=== PATIENT | male | born 1945 | race Caucasian/White ===

== ENCOUNTER 2017-01-21 06:39 | Day surgery (SDC) | payer MEDICARE, OTHER ==
[~2017-01-21 06:39] MED LIST: Dextrose 5%-0.45% NaCl 1,000 ML IV SCH; Midazolam 1 MG/ML 2 ML SDV ONE; Sodium Chloride 0.9% 10 ML Syringe FLUSH PRN; fentaNYL 100 MCG/2 ML SDV ONE
[2017-01-21] MEDS ORDERED: Midazolam 1 MG/ML 2 ML SDV IV ONE ×2 (06:40→07:47)
[2017-01-21] MEDS ORDERED: fentaNYL 100 MCG/2 ML SDV IV ONE ×2 (06:40→07:46)
--- NOTE | 2017-01-21 12:22 | OR ---
DATE: 01/21/2017 PROCEDURE: Esophagogastroduodenoscopy and multiple pinch biopsies. INSTRUMENT USED: GIF-H180 Olympus video panendoscope. PREMEDICATIONS: No oral topical anesthesia used. Fentanyl 50 mcg intravenous, Versed 1 mg intravenous. The procedure was done under pulse oximetry, BP recording, and meter supervisor. INDICATION: The patient with recent CT study suggestive of abnormal esophagus, malignancy under consideration, on long-term low-dose aspirin. Esophagogastroduodenoscopy is performed for detection of any active erosive lesions, malignancy also under consideration, endoscopic hemostasis therapy if needed. DESCRIPTION OF PROCEDURE: The scope was passed with ease. Adequate visualization of the esophagus was made from proximal to distal areas. No upper esophageal lesions identified. No distal esophageal stricture. No uphill or downhill esophageal varices. No Gita-Scruggs tear. No evidence of erosive esophagitis by [place] criteria. No esophageal polyp or tumor mass identified. Z-line was seen at around 39 cm distal to the oral verge, configuration consistent with grade 1 by ZAP classification. No proximal gastric varices noted. Gastric fundus examination by retroflexion showed no polypoid lesions. No gastric ulcer, malignant mass, or vascular ectasia identified. Scattered gastric antral erosions were noted without bleeding. The duodenal bulb showed no ulcer. Visualized second part of duodenum was unremarkable. Multiple pinch biopsies were taken from the gastric antrum and proximal body and sent for PyloriTek test for H. pylori, and if negative in an hour, other tissue is to be sent for histopathology. No bleeding was noted from any of the visualized areas at the completion of examination. IMPRESSION: Gastric antral erosions. The patient tolerated the procedure well. [facility] /[id number]
[2017-01-21 13:42] VITALS: BP 127/75
== END 2017-01-21 10:04 | disposition home or self-care (01) ==
LOC: DL.ENDO 06:39
PROVIDERS: ATTEND Internal Medicine Gastroenterology
DX: K29.50 Unspecified chronic gastritis without bleeding (principal); N40.0 Benign prostatic hyperplasia without lower urinary tract symptoms; F32.9 Major depressive disorder, single episode, unspecified; R73.9 Hyperglycemia, unspecified; I10 Essential (primary) hypertension; Z88.8 Allergy status to other drugs, medicaments and biological substances
CPT/HCPCS: 43239; 87077; 88305; 88342; J2250; J3010; J7042

== ENCOUNTER 2017-04-25 10:44 | Emergency (ER) | payer MEDICARE, OTHER ==
[2017-04-25 11:31] VITALS: BP 138/92
--- NOTE | 2017-04-25 12:45 | EDM.PDOC ---
ED HPI GENERAL MEDICAL PROBLEM - General Chief Complaint: Respiratory Problem Stated Complaint: COLD [id number] Time Seen by Provider: 04/25/17 11:30 - History of Present Illness INITIAL COMMENTS - FREE TEXT/NARRATIVE: Asa is a 71 year old man who presents with 3 day history of worsening cough and congestion. He states he had one episode of chills last night. No shortness of breath, is able to move around his home without difficulty. Terence has no past history of obstructive lung disease Chest Pain Score (Numeric/FACES): 3 - Related Data Allergies Allergy/AdvReac Type Severity Reaction Status Date / Time atorvastatin calcium Allergy Joint Pain Verified 01/21/17 06:53 [From Lipitor] calcium Allergy Joint Pain Verified 01/21/17 06:53 rosuvastatin calcium Allergy Pain Verified 01/21/17 06:53 [From Crestor] simvastatin [From Zocor] Allergy Joint Pain Verified 01/21/17 06:53 Home Meds: Home Meds Allopurinol [Zyloprim] 300 mg PO WITHBREAKFAST 07/26/13 [History] Polyethylene Glycol 3350 [MiraLAX] 17 gm PO DAILY PRN 07/26/13 [History] Pravastatin [Pravachol] 40 mg PO DAILY 07/26/13 [History] Aspirin [Ecotrin] 81 mg PO DAILY 05/06/15 [History] Famotidine [Pepcid] 20 mg PO BID PRN 05/06/15 [History] Mv-Mn/FA/Vit K/Lycop/Lut/Zeaxa [Ocuvite Eye + Multi Tablet] 1 each PO DAILY [History] Tamsulosin [Flomax] 0.8 mg PO BEDTIME 05/06/15 [History] Acetaminophen [Acetaminophen ER] 1,300 mg PO Q8H PRN 10/09/15 [History] DULoxetine HCl [Cymbalta] 60 mg PO DAILY 10/09/15 [History] Mirtazapine [Remeron] 15 mg PO BEDTIME 10/09/15 [History] DULoxetine HCl [Cymbalta] 30 mg PO QAM 10/18/15 [History] Acetaminophen/HYDROcodone [[place] 325-5 MG] 1 tab PO Q4H PRN #12 tablet 10/26/15 [Rx] Carboxymethylcellulose Sodium [Refresh Celluvisc] 1 each EYEBOTH ASDIRECTED PRN #1 cont 10/26/15 [Rx] Docusate Sodium/Sennosides [Senna Plus] 1 tab PO BID tablet 10/26/15 [Rx] Diclofenac Sodium [Voltaren] 1 applic TOP ASDIRECTED 01/19/17 [History] Naproxen Sodium [Aleve] 1 tab PO DAILY 01/19/17 [History] guaiFENesin/Codeine Phosphate [Cheratussin AC Syrup] 5 - 10 ml PO Q6H PRN #240 ml 04/25/17 [Rx] predniSONE [Prednisone] 20 mg PO DAILY 6 Days #6 tablet 04/25/17 [Rx] Past Medical History HEENT History: Reports: Hard of Hearing, Impaired Vision, Other (See Below) Other HEENT History: dysphagia, myofascial pain Cardiovascular History: Reports: High Cholesterol, Hypertension Other Cardiovascular History: Pt is allergic to statins Respiratory History: Reports: Pneumothorax, Sleep Apnea Other Respiratory History: DYSPHAGIA, pt states that he had a collapsed lung at a young age Gastrointestinal History: Reports: Chronic Constipation, Other (See Below) Other Gastrointestinal History: constipation Genitourinary History: Reports: BPH, Neurogenic Bladder, Prostate Disorder, Other (See Below) Other Genitourinary History: orchitis, indwelling catheter Musculoskeletal History: Reports: Arthritis, Back Pain, Chronic, Gout, Other ( See Below) Other Musculoskeletal History: carpal tunnel, gout Neurological History: Reports: CVA, Vertigo Other Neuro History: DYSPHAGIA Psychiatric History: Reports: Anxiety, Depression Endocrine/Metabolic History: Reports: None Hematologic History: Reports: Anemia, Idiopathic Thrombocytopenia Immunologic History: Reports: None Oncologic (Cancer) History: Reports: None Dermatologic History: Reports: None - Infectious Disease History Infectious Disease History: Reports: Chicken Pox, Measles - Past Surgical History Head Surgeries/Procedures: Reports: None HEENT Surgical History: Reports: None Cardiovascular Surgical History: Reports: Carotid Endarterectomy, Other (See Below) Other Cardiovascular Surgeries/Procedures: Endarterectomy Respiratory Surgical History: Reports: None GI Surgical History: Reports: None Male Surgical History: Reports: TURP-Transurethral Resection of Prostate Endocrine Surgical History: Reports: None Neurological Surgical History: Reports: None Musculoskeletal Surgical History: Reports: None Dermatological Surgical History: Reports: None Social & Family History - Family History Cardiac: Reports: Cardiomyopathy, Heart Failure Respiratory: Reports: COPD GI: Reports: GERD OBGYN: Reports: None Musculoskeletal: Reports: Arthritis, Fibromyalgia Neurological: Reports: CVA Psychiatric: Reports: None Endocrine/Metabolic: Reports: None Hematologic: Reports: None Oncologic: Reports: None - Tobacco Use Smoking Status *Q: Never Smoker Years of Tobacco use: 15 Packs/Tins Daily: 2 Used Tobacco, but Quit: Yes Month/Year Tobacco Last Used: February Second Hand Smoke Exposure: No - Caffeine Use Caffeine Use: Reports: None Other Caffeine Use: MOST DAYS HE STATES NONE, SOMETIMES 1 - Alcohol Use Days Per Week of Alcohol Use: 2 Number of Drinks Per Day: 1 Total Drinks Per Week: 2 - Recreational Drug Use Recreational Drug Use: No Drug Use in Last 12 Months: No ED ROS GENERAL - Review of Systems Review Of Systems: See Below HEENT: Reports: No Symptoms Respiratory: Reports: Wheezing, Cough Cardiovascular: Reports: No Symptoms Endocrine: Reports: No Symptoms GI/Abdominal: Reports: No Symptoms : Reports: No Symptoms Musculoskeletal: Reports: No Symptoms Skin: Reports: No Symptoms Neurological: Reports: No Symptoms Psychiatric: Reports: No Symptoms Hematologic/Lymphatic: Reports: No Symptoms Immunologic: Reports: No Symptoms ED EXAM, GENERAL - Physical Exam Exam: See Below Free Text/Narrative:: General: Asa is a pleasant 71 year old man in no acute distress. He is showing no signs of respiratory distress Ears: canals are patent, TMs appear normal Oropharynx: clear, no exudates or petechiae noted Lungs: mild expiratory wheezing bilaterally PA and lateral chest xray shows some mild hilar prominence, no areas of infiltrate seen Course - Vital Signs Last Recorded V/S: Last Vital Signs Temp 98.9 C H 04/25/17 11:30 Pulse 103 H 04/25/17 11:30 Resp 16 04/25/17 11:30 BP 138/92 H 04/25/17 11:30 Pulse Ox 98 04/25/17 11:30 Departure - Departure Time of Disposition: 13:00 Disposition: Home, Self-Care 01 Condition: Good Clinical Impression: Acute bronchitis Qualifiers: Bronchitis organism: unspecified organism Qualified Code(s): J20.9 - Acute bronchitis, unspecified - Discharge Information Prescriptions: guaiFENesin/Codeine Phosphate [Cheratussin AC Syrup] 5 - 10 ml PO Q6H PRN #240 ml PRN Reason: Cough predniSONE [Prednisone] 20 mg PO DAILY 6 Days #6 tablet Instructions: Acute Bronchitis, Adult, [id number] Forms: ED Department Discharge Additional Instructions: Followup with your primary care physician in 3-4 days if you are not feeling better - Problem List & Annotations (1) Acute bronchitis SNOMED Code(s): 78491865 Code(s): J20.9 - ACUTE BRONCHITIS, UNSPECIFIED Status: Acute Onset Date: ~04/21/17 Qualifiers: Bronchitis organism: unspecified organism Qualified Code(s): J20.9 - Acute bronchitis, unspecified - Problem List Review Problem List Initiated/Reviewed/Updated: Yes
== END 2017-04-25 12:42 | disposition home or self-care (01) ==
LOC: DL.ED 10:44
DX: J20.9 Acute bronchitis, unspecified (principal); Z87.891 Personal history of nicotine dependence; I10 Essential (primary) hypertension; E78.00 Pure hypercholesterolemia, unspecified; F41.9 Anxiety disorder, unspecified; F32.9 Major depressive disorder, single episode, unspecified; Z79.899 Other long term (current) drug therapy; Z79.82 Long term (current) use of aspirin; Z79.52 Long term (current) use of systemic steroids; Z88.8 Allergy status to other drugs, medicaments and biological substances; Z91.09 Other allergy status, other than to drugs and biological substances
CPT/HCPCS: 71046; 99283

== ENCOUNTER 2017-08-02 11:28 | Emergency (ER) | payer MEDICARE, OTHER ==
[2017-08-02 11:52] VITALS: BP 114/68
[2017-08-02 13:32] LABS: CHLORIDE,CL 98 mmol/L (101-111); SODIUM,NA 137 mmol/L (135-145)
[2017-08-02] MEDS ORDERED: Ondansetron 4 MG Tab.DIS PO ONE (13:54)
--- NOTE | 2017-08-02 15:57 | EDM.PDOC ---
Scribed by Samia Fernandez 08/02/17 1979 for Josefa Stroud NP ED HPI GENERAL MEDICAL PROBLEM - General Chief Complaint: Genitourinary Problem Stated Complaint: uti Time Seen by Provider: 08/02/17 12:36 Source of Information: Reports: Patient, RN, RN Notes Reviewed History Limitations: Reports: No Limitations - History of Present Illness INITIAL COMMENTS - FREE TEXT/NARRATIVE: Patient presented to ER with complaint of burning with urination beginning last night. Patient feels as if he can't empty all the way. Patient states he had a fall on Thursday--is doctoring-- with neurology and is scheduled for MRI this week. Patient states fractured left arm and has numbness and tingling down left leg. Patient continues to have dizzy spells and unsteady/unbalanced. She has had positive night sweats, nausea, shortness of breath (normal for him) and chronic pain. No fever, chills, vomiting, diarrhea or chest pain. Onset Date: 08/01/17 Duration: Getting Worse Quality: Reports: Ache Severity: Moderate Improves with: Reports: None Worsens with: Reports: None Associated Symptoms: Reports: No Other Symptoms Bladder Pain Score (Numeric/FACES): 4 - Related Data Allergies Allergy/AdvReac Type Severity Reaction Status Date / Time atorvastatin calcium Allergy Joint Pain Verified 07/28/17 15:23 [From Lipitor] calcium Allergy Joint Pain Verified 07/28/17 15:23 rosuvastatin calcium Allergy Pain Verified 07/28/17 15:23 [From Crestor] simvastatin [From Zocor] Allergy Joint Pain Verified 07/28/17 15:23 Home Meds: Home Meds Allopurinol [Zyloprim] 300 mg PO WITHBREAKFAST 07/26/13 [History] Polyethylene Glycol 3350 [MiraLAX] 17 gm PO DAILY PRN 07/26/13 [History] Pravastatin [Pravachol] 40 mg PO DAILY 07/26/13 [History] Aspirin [Ecotrin] 81 mg PO DAILY 05/06/15 [History] Famotidine [Pepcid] 20 mg PO BID PRN 05/06/15 [History] Mv-Mn/FA/Vit K/Lycop/Lut/Zeaxa [Ocuvite Eye + Multi Tablet] 1 each PO DAILY [History] Tamsulosin [Flomax] 0.8 mg PO BEDTIME 05/06/15 [History] Acetaminophen [Acetaminophen ER] 1,300 mg PO Q8H PRN 10/09/15 [History] DULoxetine HCl [Cymbalta] 60 mg PO DAILY 10/09/15 [History] Mirtazapine [Remeron] 15 mg PO BEDTIME 10/09/15 [History] DULoxetine HCl [Cymbalta] 30 mg PO QAM 10/18/15 [History] Carboxymethylcellulose Sodium [Refresh Celluvisc] 1 each EYEBOTH ASDIRECTED PRN #1 cont 10/26/15 [Rx] Docusate Sodium/Sennosides [Senna Plus] 1 tab PO BID tablet 10/26/15 [Rx] Diclofenac Sodium [Voltaren] 1 applic TOP ASDIRECTED 01/19/17 [History] Naproxen Sodium [Aleve] 1 tab PO DAILY 01/19/17 [History] guaiFENesin/Codeine Phosphate [Cheratussin AC Syrup] 5 - 10 ml PO Q6H PRN #240 ml 04/25/17 [Rx] predniSONE [Prednisone] 20 mg PO DAILY 6 Days #6 tablet 04/25/17 [Rx] Acetaminophen/HYDROcodone [[place] 325-5 MG] 1 tab PO BID 08/02/17 [History] Past Medical History HEENT History: Reports: Hard of Hearing, Impaired Vision, Other (See Below) Other HEENT History: dysphagia, myofascial pain Cardiovascular History: Reports: High Cholesterol, Hypertension Other Cardiovascular History: Pt is allergic to statins Respiratory History: Reports: Pneumothorax, Sleep Apnea Other Respiratory History: DYSPHAGIA, pt states that he had a collapsed lung at a young age Gastrointestinal History: Reports: Chronic Constipation, Other (See Below) Other Gastrointestinal History: constipation Genitourinary History: Reports: BPH, Neurogenic Bladder, Prostate Disorder, Other (See Below) Other Genitourinary History: orchitis, indwelling catheter Musculoskeletal History: Reports: Arthritis, Back Pain, Chronic, Gout, Other ( See Below) Other Musculoskeletal History: carpal tunnel, gout Neurological History: Reports: CVA, Vertigo Other Neuro History: DYSPHAGIA Psychiatric History: Reports: Anxiety, Depression Endocrine/Metabolic History: Reports: None Hematologic History: Reports: Anemia, Idiopathic Thrombocytopenia Immunologic History: Reports: None Oncologic (Cancer) History: Reports: None Dermatologic History: Reports: None - Infectious Disease History Infectious Disease History: Reports: Chicken Pox, Measles - Past Surgical History Head Surgeries/Procedures: Reports: None HEENT Surgical History: Reports: None Cardiovascular Surgical History: Reports: Carotid Endarterectomy, Other (See Below) Other Cardiovascular Surgeries/Procedures: Endarterectomy Respiratory Surgical History: Reports: None GI Surgical History: Reports: None Male Surgical History: Reports: TURP-Transurethral Resection of Prostate Endocrine Surgical History: Reports: None Neurological Surgical History: Reports: None Musculoskeletal Surgical History: Reports: None Dermatological Surgical History: Reports: None Social & Family History - Family History Family Medical History: Noncontributory Cardiac: Reports: Cardiomyopathy, Heart Failure Respiratory: Reports: COPD GI: Reports: GERD OBGYN: Reports: None Musculoskeletal: Reports: Arthritis, Fibromyalgia Neurological: Reports: CVA Psychiatric: Reports: None Endocrine/Metabolic: Reports: None Hematologic: Reports: None Oncologic: Reports: None - Tobacco Use Smoking Status *Q: Former Smoker Used Tobacco, but Quit: Yes Month/Year Tobacco Last Used: ? - Caffeine Use Caffeine Use: Reports: None Other Caffeine Use: MOST DAYS HE STATES NONE, SOMETIMES 1 - Recreational Drug Use Recreational Drug Use: No ED ROS GENERAL - Review of Systems Review Of Systems: ROS reveals no pertinent complaints other than HPI. ED EXAM, RENAL/ - Physical Exam Exam: See Below Exam Limited By: No Limitations General Appearance: Alert, WD/WN, No Apparent Distress Eye Exam: Bilateral Eye: Normal Inspection Ears: Other (hard of hearing) Nose: Normal Inspection, Normal Mucosa, No Blood Throat/Mouth: Normal Inspection, Normal Lips, Normal Teeth, Normal Gums, Normal Oropharynx, Normal Voice, No Airway Compromise Head: Atraumatic, Normocephalic Neck: Normal Inspection, Supple, Non-Tender, Full Range of Motion Respiratory/Chest: No Respiratory Distress, Lungs Clear, Normal Breath Sounds, No Accessory Muscle Use, Chest Non-Tender Cardiovascular: Normal Peripheral Pulses, Regular Rate, Rhythm, No Edema, No Gallop, No JVD, No Murmur, No Rub GI/Abdominal: Normal Bowel Sounds, Soft, Non-Tender, No Organomegaly, No Distention, No Abnormal Bruit, No Mass (Male) Exam: Deferred Rectal (Males) Exam: Deferred Back Exam: Decreased Range of Motion Extremities: Normal Inspection Neurological: Alert, Oriented, CN II-XII Intact, Normal Cognition, Normal Gait, Normal Reflexes, No Motor/Sensory Deficits Psychiatric: Normal Mood Skin Exam: Pallor, Other (pale) Course - Vital Signs Last Recorded V/S: Last Vital Signs Temp 97.8 F 08/02/17 11:50 Pulse 100 08/02/17 11:50 Resp 16 08/02/17 11:50 BP 114/68 08/02/17 11:50 Pulse Ox 98 08/02/17 11:50 - Orders/Labs/Meds Labs: Laboratory Tests 08/02/17 08/02/17 08/02/17 Range/Units 11:55 13:06 13:06 WBC 7.8 (5.0-10.0) 10^3/uL RBC 4.17 L (4.6-6.2) 10^6/uL Hgb 12.0 L (14.0-18.0) g/dL Hct 35.4 L (40.0-54.0) % MCV 84.9 D (80-100) fL MCH 28.8 (27.0-34.0) pg MCHC 33.9 (33.0-35.0) g/dL Plt Count 251 (150-450) 10^3/uL Neut % (Auto) 66.7 (42.2-75.2) % Lymph % (Auto) 22.7 (20.5-50.1) % [place] % (Auto) 8.8 H (2-8) % Eos % (Auto) 1.4 (1.0-3.0) % Baso % (Auto) 0.4 (0.0-1.0) % Sodium 137 (135-145) mmol/L Potassium 3.8 (3.6-5.0) mmol/L Chloride 98 L (101-111) mmol/L Carbon Dioxide 27.0 (21.0-31.0) mmol/L Anion Gap 15.8 BUN 20 H (7-18) mg/dL Creatinine 1.1 (0.6-1.3) mg/dL Est Cr Clr Drug Dosing 59.81 mL/min Estimated GFR (MDRD) > 60 BUN/Creatinine Ratio 18.18 Glucose 112 H (74-105) mg/dL Calcium 9.4 (8.4-10.2) mg/dl Total Bilirubin 0.8 (0.2-1.0) mg/dL AST 16 (10-42) IU/L ALT 16 (10-60) IU/L Alkaline Phosphatase 79 (42-121) IU/L Troponin I < 0.02 (0.00-0.02) ng/ml Total Protein 7.5 (6.7-8.2) g/dl Albumin 4.0 (3.2-5.5) g/dl Globulin 3.5 Albumin/Globulin Ratio 1.14 Urine Color Yellow (YELLOW) Urine Appearance Clear (CLEAR) Urine pH 6.0 (5.0-9.0) Ur Specific [place] 1.015 (1.005-1.030) Urine Protein 30 H (NEGATIVE) Urine Glucose (UA) Negative (NEGATIVE) Urine Ketones Negative (NEGATIVE) Urine Occult Blood Negative (NEGATIVE) Urine Nitrite Negative (NEGATIVE) Urine Bilirubin Negative (NEGATIVE) Urine Urobilinogen 1.0 (0.2-1.0) mg/dL Ur Leukocyte Esterase Negative (NEGATIVE) Urine RBC 0-5 /HPF Urine WBC 0-5 (0-5/HPF) /HPF Ur Epithelial Cells Rare /HPF Urine Bacteria Few (0-FEW/HPF) /HPF Urine Mucus Few H /LPF Urinalysis Comment See note Meds: Medications Discontinued Medications Generic Name Dose Route Start Last Admin Trade Name Freq PRN Reason Stop Dose Admin Ondansetron HCl 4 mg 08/02/17 13:54 08/02/17 13:59 Zofran Odt PO 08/02/17 13:55 4 mg ONETIME ONE Administration - Radiology Interpretation Free Text/Narrative:: head CT without contrast: IMPRESSION: No acute cerebral hemorrhage or edema.Thank you for allowing us to participate in the care of your patient. Dictated and Authenticated by: Clarissa Frye MD 08/02/2017 3:00 PM Central Time ([place] & [place]) See Rad report Departure - Departure Time of Disposition: 15:05 Disposition: Home, Self-Care 01 Condition: Fair Clinical Impression: Nausea, Dizziness - Discharge Information Instructions: Nausea, Adult, [id number], Dizziness, [id number] Forms: ED Department Discharge Additional Instructions: Follow up with your primary care facility I have read and agree with the documentation that has been completed regarding this visit. By signing this record, I attest that the documentation was completed in my physical presence and is an accurate record of the encounter.
== END 2017-08-02 15:14 | disposition home or self-care (01) ==
LOC: DL.ED 11:28
DX: R42 Dizziness and giddiness (principal); R11.0 Nausea; I10 Essential (primary) hypertension; Z88.8 Allergy status to other drugs, medicaments and biological substances; Z79.899 Other long term (current) drug therapy; Z79.82 Long term (current) use of aspirin; Z87.891 Personal history of nicotine dependence
CPT/HCPCS: 36415; 70450; 80053; 81001; 84484; 85025; 99284; A9270

== ENCOUNTER 2017-09-01 14:41 | Emergency (ER) | payer MEDICARE, OTHER ==
[2017-09-01 14:50] VITALS: BP 140/73
[2017-09-01] MEDS ORDERED: Sodium Chloride 0.9% 10 ML Syringe FLUSH PRN (15:11)
--- NOTE | 2017-09-01 15:19 | EDM.PDOC ---
ED HPI GENERAL MEDICAL PROBLEM - General Chief Complaint: Trauma Stated Complaint: POSSIBLE CONCUSSION Time Seen by Provider: 09/01/17 15:00 Source of Information: Reports: Patient, Family, RN, RN Notes Reviewed History Limitations: Reports: No Limitations - History of Present Illness INITIAL COMMENTS - FREE TEXT/NARRATIVE: Pt to ER with c/o falling in his garage. Patient here with animal care specialist. She states she came upon him right after the incident happened. She states if he did lose consciousness it was very brief. Patient states he is not sure what happened. He denies any "new" pain at this time. plant breeder states this occurred about 1415. plant breeder states she feels he is much more confused after the fall than usual. Onset: Today, Sudden - Related Data Allergies Allergy/AdvReac Type Severity Reaction Status Date / Time atorvastatin calcium Allergy Joint Pain Verified 07/28/17 15:23 [From Lipitor] calcium Allergy Joint Pain Verified 07/28/17 15:23 rosuvastatin calcium Allergy Pain Verified 07/28/17 15:23 [From Crestor] simvastatin [From Zocor] Allergy Joint Pain Verified 07/28/17 15:23 Home Meds: Home Meds Allopurinol [Zyloprim] 300 mg PO WITHBREAKFAST 07/26/13 [History] Polyethylene Glycol 3350 [MiraLAX] 17 gm PO DAILY PRN 07/26/13 [History] Pravastatin [Pravachol] 40 mg PO DAILY 07/26/13 [History] Aspirin [Ecotrin] 81 mg PO DAILY 05/06/15 [History] Mv-Mn/FA/Vit K/Lycop/Lut/Zeaxa [Ocuvite Eye + Multi Tablet] 1 each PO DAILY [History] Tamsulosin [Flomax] 0.8 mg PO BEDTIME 05/06/15 [History] Acetaminophen [Acetaminophen ER] 1,300 mg PO Q8H PRN 10/09/15 [History] DULoxetine HCl [Cymbalta] 60 mg PO DAILY 10/09/15 [History] Mirtazapine [Remeron] 15 mg PO BEDTIME 10/09/15 [History] DULoxetine HCl [Cymbalta] 30 mg PO QAM 10/18/15 [History] Carboxymethylcellulose Sodium [Refresh Celluvisc] 1 each EYEBOTH ASDIRECTED PRN #1 cont 09/16/16 [Rx] Diclofenac Sodium [Voltaren] 1 applic TOP ASDIRECTED 01/19/17 [History] Naproxen Sodium [Aleve] 1 tab PO DAILY 01/19/17 [History] guaiFENesin/Codeine Phosphate [Cheratussin AC Syrup] 5 - 10 ml PO Q6H PRN #240 ml 04/25/17 [Rx] Acetaminophen/HYDROcodone [[place] 325-5 MG] 1 tab PO BID 08/02/17 [History] Past Medical History HEENT History: Reports: Hard of Hearing, Impaired Vision, Other (See Below) Other HEENT History: dysphagia, myofascial pain Cardiovascular History: Reports: High Cholesterol, Hypertension Other Cardiovascular History: Pt is allergic to statins Respiratory History: Reports: Pneumothorax, Sleep Apnea Other Respiratory History: DYSPHAGIA, pt states that he had a collapsed lung at a young age Gastrointestinal History: Reports: Chronic Constipation, Other (See Below) Other Gastrointestinal History: constipation Genitourinary History: Reports: BPH, Neurogenic Bladder, Prostate Disorder, Other (See Below) Other Genitourinary History: orchitis, indwelling catheter Musculoskeletal History: Reports: Arthritis, Back Pain, Chronic, Gout, Other ( See Below) Other Musculoskeletal History: carpal tunnel, gout Neurological History: Reports: CVA, Vertigo Other Neuro History: DYSPHAGIA Psychiatric History: Reports: Anxiety, Depression Endocrine/Metabolic History: Reports: None Hematologic History: Reports: Anemia, Idiopathic Thrombocytopenia Immunologic History: Reports: None Oncologic (Cancer) History: Reports: None Dermatologic History: Reports: None - Infectious Disease History Infectious Disease History: Reports: Chicken Pox, Measles - Past Surgical History Head Surgeries/Procedures: Reports: None HEENT Surgical History: Reports: None Cardiovascular Surgical History: Reports: Carotid Endarterectomy, Other (See Below) Other Cardiovascular Surgeries/Procedures: Endarterectomy Respiratory Surgical History: Reports: None GI Surgical History: Reports: None Male Surgical History: Reports: TURP-Transurethral Resection of Prostate Endocrine Surgical History: Reports: None Neurological Surgical History: Reports: None Musculoskeletal Surgical History: Reports: None Dermatological Surgical History: Reports: None Social & Family History - Family History Family Medical History: Noncontributory Cardiac: Reports: Cardiomyopathy, Heart Failure Respiratory: Reports: COPD GI: Reports: GERD OBGYN: Reports: None Musculoskeletal: Reports: Arthritis, Fibromyalgia Neurological: Reports: CVA Psychiatric: Reports: None Endocrine/Metabolic: Reports: None Hematologic: Reports: None Oncologic: Reports: None - Caffeine Use Caffeine Use: Reports: None Other Caffeine Use: MOST DAYS HE STATES NONE, SOMETIMES 1 Review of Systems - Review of Systems Review Of Systems: ROS reveals no pertinent complaints other than HPI. ED EXAM, GENERAL - Physical Exam Exam: See Below Exam Limited By: Physical Impairment General Appearance: Alert, WD/WN, No Apparent Distress Eye Exam: Bilateral Eye: EOMI, Normal Inspection Ears: Normal External Exam, Hearing Grossly Normal, Other (Hearing aid right ear , blood noted in left canal, unable to determine if coming from the TM. ) Ear Exam: Left Ear: Bleeding, TM Dull Nose: Normal Inspection, Normal Mucosa, No Blood Throat/Mouth: Normal Inspection, Normal Lips, Normal Teeth, Normal Gums, Normal Oropharynx, Normal Voice, No Airway Compromise Head: Facial Swelling, Facial Tenderness, Other (abrasion external left ear, redness and minimal swelling to the left side of the face. ) Neck: Normal Inspection, Supple, Non-Tender, Limited Range of Motion Respiratory/Chest: No Respiratory Distress, Lungs Clear, Normal Breath Sounds, No Accessory Muscle Use, Chest Non-Tender Cardiovascular: Normal Peripheral Pulses, No Edema, No Gallop, No JVD, No Murmur , No Rub, Irregularly Irregular Peripheral Pulses: 2+: Radial (L), Radial (R) GI/Abdominal: Normal Bowel Sounds, Soft, Non-Tender, No Organomegaly, No Distention (Male) Exam: Deferred Rectal (Males) Exam: Deferred Back Exam: Normal Inspection, Decreased Range of Motion Extremities: Normal Inspection, No Pedal Edema, Normal Capillary Refill, Arm Pain (left arm, recent fracture (~4 weeks ago)), Limited Range of Motion Neurological: Alert, Oriented, CN II-XII Intact, Normal Cognition, No Motor/ Sensory Deficits Psychiatric: Normal Affect, Normal Mood Skin Exam: Warm, Dry, Intact, Normal Color, No Rash Lymphatic: No Adenopathy Course - Vital Signs Last Recorded V/S: Last Vital Signs Temp 98.6 F 09/01/17 15:16 Pulse 52 L 09/01/17 14:48 Resp 16 09/01/17 14:48 BP 140/73 09/01/17 14:48 Pulse Ox 97 09/01/17 14:48 - Orders/Labs/Meds Orders: Active Orders 24 hr Category Date Time Status Peripheral IV Care [RC] . DIRECTED Care 09/01/17 15:13 Active UA W/MICROSCOPIC [URIN] Stat Lab 09/01/17 15:12 Ordered Sodium Chloride 0.9% [Saline Flush] Med 09/01/17 15:11 Active 10 ml FLUSH ASDIRECTED PRN Peripheral IV Insertion Adult [OM.PC] Stat Oth 09/01/17 15:11 Ordered Medication Orders Sodium Chloride (Saline Flush) 10 ml FLUSH ASDIRECTED PRN PRN Reason: Keep Vein Open Labs: Laboratory Tests 09/01/17 09/01/17 09/01/17 Range/Units 15:09 15:09 15:09 WBC 7.0 (5.0-10.0) 10^3/uL RBC 4.22 L (4.6-6.2) 10^6/uL Hgb 11.7 L (14.0-18.0) g/dL Hct 35.7 L (40.0-54.0) % MCV 84.6 (80-100) fL MCH 27.7 (27.0-34.0) pg MCHC 32.8 L (33.0-35.0) g/dL Plt Count 242 (150-450) 10^3/uL Neut % (Auto) 61.2 (42.2-75.2) % Lymph % (Auto) 28.0 (20.5-50.1) % [place] % (Auto) 8.7 H (2-8) % Eos % (Auto) 2.0 (1.0-3.0) % Baso % (Auto) 0.1 (0.0-1.0) % PT 10.7 (9.0-12.0) SEC INR 1.1 (0.9-1.2) Sodium 138 (135-145) mmol/L Potassium 3.5 L (3.6-5.0) mmol/L Chloride 102 (101-111) mmol/L Carbon Dioxide 26.0 (21.0-31.0) mmol/L Anion Gap 13.5 BUN 21 H (7-18) mg/dL Creatinine 1.0 (0.6-1.3) mg/dL Est Cr Clr Drug Dosing 65.79 mL/min Estimated GFR (MDRD) > 60 BUN/Creatinine Ratio 21.00 Glucose 148 H (74-105) mg/dL Calcium 9.2 (8.4-10.2) mg/dl Total Bilirubin 0.4 (0.2-1.0) mg/dL AST 19 (10-42) IU/L ALT 12 (10-60) IU/L Alkaline Phosphatase 101 (42-121) IU/L Total Protein 7.5 (6.7-8.2) g/dl Albumin 3.8 (3.2-5.5) g/dl Globulin 3.7 Albumin/Globulin Ratio 1.03 Meds: Medications Generic Name Dose Route Start Last Admin Trade Name Freq PRN Reason Stop Dose Admin Sodium Chloride 10 ml 09/01/17 15:11 Saline Flush FLUSH ASDIRECTED PRN Keep Vein Open Discontinued Medications Generic Name Dose Route Start Last Admin Trade Name Freq PRN Reason Stop Dose Admin Bacitracin 1 dose 09/01/17 16:04 Bacitracin Oint 1 Gm TOP 09/01/17 16:05 ONETIME ONE - Radiology Interpretation Free Text/Narrative:: Head CT without contrast: Markedly abnormal but notably unchanged when compared directly to CT images of 02 August 2017. 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 Atrophy. No new supratentorial or posterior fossa mass lesion. Cerebellum and brainstem unremarkable. No sign of acute intracerebral/intraventricular/subarachnoid bleed. Symmetric clear pneumatization of the mastoid and paranasal sinuses. C spine CT without contrast: No cervical fracture or dislocation. Cervical disc disease and chronic arthritis of the spine See rad report Departure - Departure Time of Disposition: 16:05 Disposition: Home, Self-Care 01 Condition: Fair Clinical Impression: Concussion with brief (less than one hour) loss of consciousness Strain of neck muscle Qualifiers: Encounter type: initial encounter Qualified Code(s): S16.1XXA - Strain of muscle, fascia and tendon at neck level, initial encounter Fall at home Qualifiers: Encounter type: initial encounter Qualified Code(s): W19.XXXA - Unspecified fall, initial encounter - Discharge Information *PRESCRIPTION DRUG MONITORING PROGRAM REVIEWED*: No *COPY OF PRESCRIPTION DRUG MONITORING REPORT IN PATIENT LEVI: No Instructions: Concussion, Adult, [id number], Muscle Strain, [id number], Head Injury, Adult, [id number], Post-Concussion Syndrome, Cervical Sprain, [id number] Forms: ED Department Discharge Additional Instructions: Follow up with your primary care facility May use Tylenol as directed for pain - My Orders Last 24 Hours: My Active Orders 09/01/17 15:11 Sodium Chloride 0.9% [Saline Flush] 10 ml FLUSH ASDIRECTED PRN Peripheral IV Insertion Adult [OM.PC] Stat 09/01/17 15:12 UA W/MICROSCOPIC [URIN] Stat 09/01/17 15:13 Peripheral IV Care [RC] . DIRECTED - Assessment/Plan Last 24 Hours: My Active Orders 09/01/17 15:11 Sodium Chloride 0.9% [Saline Flush] 10 ml FLUSH ASDIRECTED PRN Peripheral IV Insertion Adult [OM.PC] Stat 09/01/17 15:12 UA W/MICROSCOPIC [URIN] Stat 09/01/17 15:13 Peripheral IV Care [RC] . DIRECTED
--- NOTE | 2017-09-01 15:46 | CT ---
Clinical history: 71-year-old male loss of consciousness and blood from the left ear associated with fall. Scan technique: Volume acquisition of data emergency unenhanced CT scan of the cervical spine obtaine d while the patient was lying supine on the Siemens multi slice scanner [place], [place]. All data archived in the PAC system for storage, reformatting and study. Interpretation: 1. No sign of prevertebral soft tissue swelling, cervical fracture, spondylolisthesis or jumped marichuy d facet. 2. Dense reactive atlantoaxial sclerosis. 3. 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 4. Symmetric clear pneumatization of the mastoid sinuses. No basal skull fracture. No fluid in the ex ternal ear canal. CONCLUSION: No cervical fracture or dislocation. Cervical disc disease and chronic arthritis of the s pine.
[2017-09-01 15:47] LABS: ANION GAP 13.5; CHLORIDE,CL 102 mmol/L (101-111); SODIUM,NA 138 mmol/L (135-145)
--- NOTE | 2017-09-01 15:51 | CT ---
Clinical history: 71-year-old male injured in a fall reported on previous CT exam 02 August 2017 to hav e "large right frontal temporal encephalomalacia and small vessel disease". TECHNIQUE: Volume acquisition of data emergency unenhanced CT scan of the head and brain obtained wit h the patient was lying supine on the Siemens multislice scanner [facility]. All data archived in the PACS system for storage, reformatting and study (bone/brain win dows). Interpretation: Markedly abnormal but notably unchanged when compared directly to CT images of Jul. No new signs of skull fracture, underlying brain contusion or epidural/subdural hematoma. 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 Atr ophy. No new supratentorial or posterior fossa mass lesion. Cerebellum and brainstem unremarkable. No sign of acute intracerebral/intraventricular/subarachnoid bleed. Symmetric clear pneumatization of the mastoid and paranasal sinuses.
[2017-09-01] MEDS ORDERED: Bacitracin Oint 1 GM U/D Packet TOP ONE (16:04)
== END 2017-09-01 16:25 | disposition home or self-care (01) ==
LOC: DL.ED 14:41
DX: S06.0X9A Concussion with loss of consciousness of unspecified duration, initial encounter (principal); S16.1XXA Strain of muscle, fascia and tendon at neck level, initial encounter; I10 Essential (primary) hypertension; E78.00 Pure hypercholesterolemia, unspecified; F41.9 Anxiety disorder, unspecified; F32.9 Major depressive disorder, single episode, unspecified; Z88.8 Allergy status to other drugs, medicaments and biological substances; Z79.899 Other long term (current) drug therapy; W19.XXXA Unspecified fall, initial encounter; Z86.73 Personal history of transient ischemic attack (TIA), and cerebral infarction without residual deficits
CPT/HCPCS: 36415; 70450; 72125; 80053; 85025; 85610; 99284; 99285

== ENCOUNTER 2017-09-24 06:21 | Day surgery (SDC) | payer MEDICARE, OTHER ==
[2017-09-24] MEDS ORDERED: fentaNYL 100 MCG/2 ML SDV IV ONE ×3 (06:22→07:32)
[2017-09-24] MEDS ORDERED: Midazolam 1 MG/ML 2 ML SDV IV ONE ×5 (06:22→07:40)
--- NOTE | 2017-09-24 08:39 | OR ---
DATE: 09/24/2017 PROCEDURES: Total colonoscopy, narrow-band imaging, cold snare polypectomy, and multiple pinch biopsies. INSTRUMENT USED: CF-H180 AL Olympus video colonoscope. PREMEDICATIONS: Fentanyl 100 mcg intravenous, Versed 3 mg intravenous. Nasal O2 cannula. The procedure was done under pulse oximetry, BP recording, and cardiac catheterization technician. INDICATION: The patient with positive FIT. Colonoscopic examination is done for detection of any polypoid lesions and removal, endoscopic hemostasis therapy if needed. DESCRIPTION OF PROCEDURE: Initial rectal exam was unremarkable. Rigid anoscopy was normal. The colonoscope was passed with ease. Scattered diverticula were noted in the distal left colon without deformity. There was some amount of fecal material that had to be aspirated clear. The scope was passed with ease up to the ileocecal area. Photographs were taken of the normal-appearing cecum identified by landmarks of appendiceal orifice and double-bulged ileocecal folds. No bleeding was noted from any of the visualized areas at the commencement of the examination. The bowel preparation was found to be adequate. No stricture. No vascular ectasia. No large isolated ulcerations seen. No evidence of diffuse inflammatory bowel disease in the form of friability, contact bleeding, or ulcerations. Probing the proximal sides of folds and flexures, using adequate distention and clearing up the stool material, withdrawal of the scope was made. In the proximal ascending colon, large, more than 2-cm sized sessile polyp was noted. NBI views were obtained. Photographs were taken. Multiple pinch biopsies were obtained and sent for histopathology. In the distal transverse colon area, a 5-mm sized benign-appearing polyp was noted. Cold snare polypectomy was done. The tissue was retrieved and sent for histopathology. No bleeding was noted from any of the visualized areas at the completion of examination. IMPRESSION: 1. Diverticulosis. 2. Colonic polyps. The patient tolerated the procedure well. [facility] /[id number]
[2017-09-24 13:06] VITALS: BP 143/77
== END 2017-09-24 10:05 | disposition home or self-care (01) ==
LOC: DL.ENDO 06:21
PROVIDERS: ATTEND Internal Medicine Gastroenterology
DX: R19.5 Other fecal abnormalities (principal); D12.2 Benign neoplasm of ascending colon; D12.3 Benign neoplasm of transverse colon; K57.30 Diverticulosis of large intestine without perforation or abscess without bleeding; D64.9 Anemia, unspecified; N40.0 Benign prostatic hyperplasia without lower urinary tract symptoms; E78.5 Hyperlipidemia, unspecified; I10 Essential (primary) hypertension; D69.6 Thrombocytopenia, unspecified; F32.9 Major depressive disorder, single episode, unspecified; Z88.8 Allergy status to other drugs, medicaments and biological substances
CPT/HCPCS: 88305; J2250; J3010; J7042

== ENCOUNTER 2019-01-16 09:54 | Emergency (ER) | payer MEDICARE, OTHER ==
[2019-01-16 10:20] VITALS: BP 142/76; PULSE 107
[2019-01-16] MEDS ORDERED: Sodium Chloride 0.9% 10 ML Syringe FLUSH PRN (10:28)
[2019-01-16] MEDS ORDERED: Sodium Chloride 0.9% 1,000 ML IV ONE (10:28)
[2019-01-16] MEDS ORDERED: HYDROmorphone 1 MG/ML Syringe IVPUSH ONE (10:28)
[2019-01-16 11:04] LABS: ANION GAP 12.7; CHLORIDE,CL 105 mmol/L (101-111); SODIUM,NA 138 mmol/L (135-145)
[2019-01-16] MEDS ORDERED: Iopamidol 612 MG/ML 75 ML Bottle IVPUSH ONE (12:11)
[2019-01-16] MEDS ORDERED: Lactulose Soln 10 GM/15 ML 30 ML UD Cup PO ONE (13:28)
--- NOTE | 2019-01-16 13:30 | EDM.PDOC ---
"Scribed by Samia Fernandez 01/16/19 1021 for Mckinley Batista MD ED HPI GENERAL MEDICAL PROBLEM - General Chief Complaint: Abdominal Pain Stated Complaint: ABD PAIN Time Seen by Provider: 01/16/19 10:15 Source of Information: Reports: Patient, Family (daughter), Old Records, RN, RN Notes Reviewed History Limitations: Reports: No Limitations - History of Present Illness INITIAL COMMENTS - FREE TEXT/NARRATIVE: Pt presents to ER from home by POV with c/o abdominal pain x10 days. Pt states the pain has worsened in the last 24 hours, and is worse at the LLQ. He describes the pain as constant and sharp. Pain is rated 8/10. Nothing alleviates the pain. The pain is worse with movement and walking. Pt states he takes Miralax and has been having daily BMs. Onset: Gradual Duration: Day(s): (10), Constant, Getting Worse Location: Reports: Abdomen Quality: Reports: Sharp Severity: Severe Improves with: Reports: None Worsens with: Reports: Movement Associated Symptoms: Reports: No Other Symptoms Left Lower Abdominal Pain Score (Numeric/FACES): 10 - Related Data Allergies Allergy/AdvReac Type Severity Reaction Status Date / Time atorvastatin calcium Allergy Joint Pain Verified 01/16/19 10:24 [From Lipitor] calcium Allergy Joint Pain Verified 01/16/19 10:24 rosuvastatin calcium Allergy Pain Verified 01/16/19 10:24 [From Crestor] simvastatin [From Zocor] Allergy Joint Pain Verified 01/16/19 10:24 Home Meds: Home Meds Allopurinol [Zyloprim] 300 mg PO WITHBREAKFAST 07/26/13 [History] Polyethylene Glycol 3350 [MiraLAX] 17 gm PO DAILY PRN 07/26/13 [History] Pravastatin [Pravachol] 40 mg PO DAILY 07/26/13 [History] Mv-Mn/FA/Vit K/Lycop/Lut/Zeaxa [Ocuvite Eye + Multi Tablet] 1 each PO DAILY [History] Tamsulosin [Flomax] 0.8 mg PO DAILY 05/06/15 [History] Mirtazapine [Remeron] 15 mg PO BEDTIME 10/09/15 [History] DULoxetine HCl [Cymbalta] 90 mg PO QAM 10/18/15 [History] Diclofenac Sodium [Voltaren] 1 applic TOP ASDIRECTED 01/19/17 [History] Clopidogrel Bisulfate [Clopidogrel] 75 mg PO DAILY 09/23/17 [History] Omeprazole 20 mg PO DAILY 09/24/17 [History] Benzocaine [Hurricaine 20% Gel] 1 applic TOP ASDIRECTED PRN 01/16/19 [History] Docusate Sodium 100 mg PO DAILY PRN 01/16/19 [History] Fluticasone Propionate [Flonase Allergy Relief] 1 spray NASBOTH DAILY 01/16/19 [ History] Lactose-Reduced Food [Boost High Protein] 237 ml PO DAILY 01/16/19 [History] Mirabegron [Myrbetriq] 50 mg PO DAILY 01/16/19 [History] Naproxen [Naprosyn] 250 mg PO BID 01/16/19 [History] Past Medical History HEENT History: Reports: Hard of Hearing, Impaired Vision, Other (See Below) Other HEENT History: dysphagia, myofascial pain Cardiovascular History: Reports: High Cholesterol, Hypertension Other Cardiovascular History: Pt is allergic to statins Respiratory History: Reports: Bronchitis, Recurrent, Pneumothorax, Sleep Apnea Other Respiratory History: DYSPHAGIA, pt states that he had a collapsed lung at a young age Gastrointestinal History: Reports: Chronic Constipation, GERD, Hemorrhoids, Other (See Below) Other Gastrointestinal History: constipation. hx ulcer Genitourinary History: Reports: BPH, Neurogenic Bladder, Prostate Disorder, Other (See Below) Other Genitourinary History: orchitis Musculoskeletal History: Reports: Arthritis, Back Pain, Chronic, Gout, Other ( See Below) Other Musculoskeletal History: carpal tunnel, gout Neurological History: Reports: CVA, Vertigo Other Neuro History: DYSPHAGIA Psychiatric History: Reports: Anxiety, Depression Endocrine/Metabolic History: Reports: Hyperthyroidism Hematologic History: Reports: Anemia, Idiopathic Thrombocytopenia Immunologic History: Reports: None Oncologic (Cancer) History: Reports: None Dermatologic History: Reports: None - Infectious Disease History Infectious Disease History: Reports: Chicken Pox, Measles - Past Surgical History Head Surgeries/Procedures: Reports: None HEENT Surgical History: Reports: None Cardiovascular Surgical History: Reports: Carotid Endarterectomy, Other (See Below) Other Cardiovascular Surgeries/Procedures: Endarterectomy Respiratory Surgical History: Reports: None GI Surgical History: Reports: Colonoscopy, EGD Male Surgical History: Reports: TURP-Transurethral Resection of Prostate Endocrine Surgical History: Reports: None Neurological Surgical History: Reports: None Musculoskeletal Surgical History: Reports: None Dermatological Surgical History: Reports: None Social & Family History - Family History Family Medical History: Noncontributory Cardiac: Reports: Cardiomyopathy, Heart Failure Respiratory: Reports: COPD GI: Reports: GERD OBGYN: Reports: None Musculoskeletal: Reports: Arthritis, Fibromyalgia Neurological: Reports: CVA Psychiatric: Reports: None Endocrine/Metabolic: Reports: None Hematologic: Reports: None Oncologic: Reports: None - Caffeine Use Caffeine Use: Reports: None Other Caffeine Use: MOST DAYS HE STATES NONE, SOMETIMES 1 - Living Situation & Occupation Living situation: Reports: , with Spouse Occupation: Retired ED ROS GENERAL - Review of Systems Review Of Systems: Comprehensive ROS is negative, except as noted in HPI. ED EXAM, GI/ABD - Physical Exam Exam: See Below Exam Limited By: No Limitations General Appearance: Alert, WD/WN, No Apparent Distress Eyes: Bilateral: Normal Appearance (No scleral icterus) Nose: Normal Inspection Throat/Mouth: Normal Inspection, Normal Lips, Normal Voice, No Airway Compromise Head: Atraumatic, Normocephalic Neck: Normal Inspection Respiratory/Chest: No Respiratory Distress, Lungs Clear, Normal Breath Sounds, No Accessory Muscle Use, Chest Non-Tender Cardiovascular: Regular Rate, Rhythm, Tachycardia GI/Abdominal Exam: Normal Bowel Sounds, Soft, No Organomegaly, No Distention, No Abnormal Bruit, No Mass, Tender (LUQ mildly tender, LLQ acutely tender). No : Guarding, Rigid, Rebound, Hernia (Male) Exam: Deferred Rectal (Males) Exam: Deferred Back Exam: Decreased Range of Motion (chronic/stable), Paraspinal Tenderness ( chronic/stable). 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 DIRECTED Care 01/16/19 10:28 Active Lactulose [Cephulac] Med 01/16/19 13:28 Once 20 gm PO ONETIME ONE Sodium Chloride 0.9% [Saline Flush] Med 01/16/19 10:28 Active 10 ml FLUSH ASDIRECTED PRN Peripheral IV Insertion Adult [OM.PC] Stat Oth 01/16/19 10:26 Ordered Medication Orders Sodium Chloride (Saline Flush) 10 ml FLUSH ASDIRECTED PRN PRN Reason: Keep Vein Open Last Admin: 01/16/19 10:44 Dose: 10 ml Labs: Laboratory Tests 01/16/19 01/16/19 01/16/19 Range/Units 10:35 10:35 10:35 WBC 12.4 H (5.0-10.0) 10^3/uL RBC 4.33 L (4.6-6.2) 10^6/uL Hgb 12.5 L (14.0-18.0) g/dL Hct 36.5 L (40.0-54.0) % MCV 84.3 (80-100) fL MCH 28.9 (27.0-34.0) pg MCHC 34.2 (33.0-35.0) g/dL Plt Count 173 D (150-450) 10^3/uL Neut % (Auto) 81.3 H (42.2-75.2) % Lymph % (Auto) 11.5 L (20.5-50.1) % [place] % (Auto) 6.1 (2-8) % Eos % (Auto) 0.9 L (1.0-3.0) % Baso % (Auto) 0.2 (0.0-1.0) % Sodium 138 (135-145) mmol/L Potassium 3.7 (3.6-5.0) mmol/L Chloride 105 (101-111) mmol/L Carbon Dioxide 24.0 (21.0-31.0) mmol/L Anion Gap 12.7 BUN 25 H (7-18) mg/dL Creatinine 0.9 (0.6-1.3) mg/dL Est Cr Clr Drug Dosing TNP Estimated GFR (MDRD) > 60 BUN/Creatinine Ratio 27.77 Glucose 132 H (74-105) mg/dL Lactic Acid 2.0 (0.5-2.2) mmol/L Calcium 8.6 (8.4-10.2) mg/dl Total Bilirubin 0.6 (0.2-1.0) mg/dL AST 25 (10-42) IU/L ALT 23 (10-60) IU/L Alkaline Phosphatase 58 (42-121) IU/L C-Reactive Protein (0.0-1.3) mg/dL Total Protein 6.6 L (6.7-8.2) g/dl Albumin 3.9 (3.2-5.5) g/dl Globulin 2.7 Albumin/Globulin Ratio 1.44 Amylase 42 (28-100) U/L Lipase 23 (22-51) U/L Urine Color (YELLOW) Urine Appearance (CLEAR) Urine pH (5.0-9.0) Ur Specific [place] (1.005-1.030) Urine Protein (NEGATIVE) Urine Glucose (UA) (NEGATIVE) Urine Ketones (NEGATIVE) Urine Occult Blood (NEGATIVE) Urine Nitrite (NEGATIVE) Urine Bilirubin (NEGATIVE) Urine Urobilinogen (0.2-1.0) mg/dL Ur Leukocyte Esterase (NEGATIVE) 01/16/19 01/16/19 Range/Units 10:35 11:57 WBC (5.0-10.0) 10^3/uL RBC (4.6-6.2) 10^6/uL Hgb (14.0-18.0) g/dL Hct (40.0-54.0) % MCV (80-100) fL MCH (27.0-34.0) pg MCHC (33.0-35.0) g/dL Plt Count (150-450) 10^3/uL Neut % (Auto) (42.2-75.2) % Lymph % (Auto) (20.5-50.1) % [place] % (Auto) (2-8) % Eos % (Auto) (1.0-3.0) % Baso % (Auto) (0.0-1.0) % Sodium (135-145) mmol/L Potassium (3.6-5.0) mmol/L Chloride (101-111) mmol/L Carbon Dioxide (21.0-31.0) mmol/L Anion Gap BUN (7-18) mg/dL Creatinine (0.6-1.3) mg/dL Est Cr Clr Drug Dosing Estimated GFR (MDRD) BUN/Creatinine Ratio Glucose (74-105) mg/dL Lactic Acid (0.5-2.2) mmol/L Calcium (8.4-10.2) mg/dl Total Bilirubin (0.2-1.0) mg/dL AST (10-42) IU/L ALT (10-60) IU/L Alkaline Phosphatase (42-121) IU/L C-Reactive Protein 2.0 H (0.0-1.3) mg/dL Total Protein (6.7-8.2) g/dl Albumin (3.2-5.5) g/dl Globulin Albumin/Globulin Ratio Amylase (28-100) U/L Lipase (22-51) U/L Urine Color Yellow (YELLOW) Urine Appearance Slightly cloudy (CLEAR) Urine pH 6.5 (5.0-9.0) Ur Specific [place] 1.020 (1.005-1.030) Urine Protein Negative (NEGATIVE) Urine Glucose (UA) Negative (NEGATIVE) Urine Ketones Negative (NEGATIVE) Urine Occult Blood Negative (NEGATIVE) Urine Nitrite Negative (NEGATIVE) Urine Bilirubin Negative (NEGATIVE) Urine Urobilinogen 0.2 (0.2-1.0) mg/dL Ur Leukocyte Esterase Negative (NEGATIVE) Meds: Medications Generic Name Dose Route Start Last Admin Trade Name Freq PRN Reason Stop Dose Admin Sodium Chloride 10 ml 01/16/19 10:28 01/16/19 10:44 Saline Flush FLUSH 10 ml ASDIRECTED PRN Administration Keep Vein Open Discontinued Medications Generic Name Dose Route Start Last Admin Trade Name Freq PRN Reason Stop Dose Admin Hydromorphone HCl 0.5 mg 01/16/19 10:28 01/16/19 10:43 Dilaudid IVPUSH 01/16/19 10:29 0.5 mg ONETIME ONE Administration Sodium Chloride 1,000 mls @ 999 mls/hr 01/16/19 10:28 01/16/19 10:44 Normal Saline IV 01/16/19 11:28 999 mls/hr .BOLUS ONE Administration Iopamidol 75 ml 01/16/19 12:11 01/16/19 12:36 Isovue-300 (61%) IVPUSH 01/16/19 12:12 75 ml ONETIME ONE Administration - Radiology Interpretation Free Text/Narrative:: [facility] [place] [facility] Final Radiology Report Call: [phone] assistance Online chat: [email or web address] Name: JAMI MONET Age: 73Years M Date: 01/16/2019 SSN: -- : [id number] Study: CT ABDOMEN/PELVIS W Requesting Physician: MCKINLEY BATISTA Images: [id number] Addl Studies: Provided Clinical History: WBC 12.4 Contrast: With Contrast Medium: Isovue 300 Contrast Amount: 75 mL Contrast Method: Rt Wrist Page 1 of 2 PROCEDURE INFORMATION: Exam: CT Abdomen And Pelvis With Contrast Exam date and time: 01/16/2019 12:26 PM Age: 73 years old Clinical history: Abdominal pain; Localized; Left lower quadrant (llq); Prior surgery; Surgery date: 6+ months; Surgery type: Prostate surgery; Additional info: Wbc 12.4 TECHNIQUE: Imaging protocol: Computed tomography of the abdomen and pelvis with intravenous contrast. Radiation optimization: All CT scans at this facility use at least one of these dose optimization techniques: automated exposure control; mA and/or kV adjustment per patient size (includes targeted exams where dose is matched to clinical indication); or iterative reconstruction. Contrast material: ISOVUE 300; Contrast volume: 75 ml; Contrast route: RT WRIST; COMPARISON: CT Abdomen Pelvis w Cont 09/15/2017 2:17 PM FINDINGS: Lungs: The visualized portions of the lung bases are normal. Mediastinum: There is a small hiatal hernia. Liver: The liver is normal. Gallbladder and bile ducts: The gallbladder is normal. Pancreas: The pancreas is normal. Spleen: The spleen is normal. Adrenals: The adrenal glands are normal. Kidneys and ureters: The kidneys are morphologically normal. There are no signs of calculi or hydronephrosis. Stomach and bowel: Scattered diverticuli are present in the left colon. No signs of diverticulitis. The GI tract has normal course, caliber and morphology. JAMI MONET | Final Radiology Report CONFIDENTIALITY STATEMENT This report is intended only for use by the referring physician, and only in accordance with law. If you received this in error, call [phone]. Page 2 of 2 Appendix: The appendix is not definitively seen, there are no findings suspicious for appendicitis. Intraperitoneal space: There is no evidence of free intraperitoneal or pelvic fluid. Vasculature: There is mild atherosclerotic calcifications of the abdominal aorta and its branches, no sign of occlusion or aneurysm. Lymph nodes: There is no evidence of lymphadenopathy. Bladder: The bladder is normal. Reproductive: The prostate demonstrates moderate nonspecific enlargement. The seminal vesicles are normal. There is a central TUR defect. Bones/joints: The spine, sacroiliac joints, and hip joints are normal. Soft tissues: There are bilateral fat containing inguinal hernias. IMPRESSION: 1. No acute intra-abdominal/pelvic abnormalities. 2. Small hiatal and fat containing inguinal hernias. 3. Unchanged prostatic hypertrophy with central TUR defect. Thank you for allowing us to participate in the care of your patient. Dictated and Authenticated by: Jose Francisco Amin MD 01/16/2019 1:16 PM Central Time ([place] & [place]) Departure - Departure Time of Disposition: 13:29 Disposition: Home, Self-Care 01 Condition: Fair Clinical Impression: Abdominal pain Qualifiers: Abdominal location: left lower quadrant Qualified Code(s): R10.32 - Left lower quadrant pain - Discharge Information *PRESCRIPTION DRUG MONITORING PROGRAM REVIEWED*: No *COPY OF PRESCRIPTION DRUG MONITORING REPORT IN PATIENT LEVI: No Instructions: Abdominal Pain, Adult Forms: ED Department Discharge Additional Instructions: Take the Lactulose, one time dose, when you get home today. Follow up in clinic the week if not improved in the next 24 hours. - My Orders Last 24 Hours: My Active Orders 01/16/19 10:26 Peripheral IV Insertion Adult [OM.PC] Stat 01/16/19 10:28 Peripheral IV Care [RC] . DIRECTED Sodium Chloride 0.9% [Saline Flush] 10 ml FLUSH ASDIRECTED PRN 01/16/19 13:28 Lactulose [Cephulac] 20 gm PO ONETIME ONE - Assessment/Plan Last 24 Hours: My Active Orders 01/16/19 10:26 Peripheral IV Insertion Adult [OM.PC] Stat 01/16/19 10:28 Peripheral IV Care [RC] . DIRECTED Sodium Chloride 0.9% [Saline Flush] 10 ml FLUSH ASDIRECTED PRN 01/16/19 13:28 Lactulose [Cephulac] 20 gm PO ONETIME ONE I have read and agree with the documentation that has been completed regarding this visit. By signing this record, I attest that the documentation was completed in my physical presence and is an accurate record of the encounter."
== END 2019-01-16 13:45 | disposition home or self-care (01) ==
LOC: DL.ED 09:54
DX: R10.32 Left lower quadrant pain (principal); I10 Essential (primary) hypertension; E78.00 Pure hypercholesterolemia, unspecified; K21.9 Gastro-esophageal reflux disease without esophagitis; N40.0 Benign prostatic hyperplasia without lower urinary tract symptoms; M10.9 Gout, unspecified; Z86.73 Personal history of transient ischemic attack (TIA), and cerebral infarction without residual deficits; F41.9 Anxiety disorder, unspecified; F32.9 Major depressive disorder, single episode, unspecified; E05.90 Thyrotoxicosis, unspecified without thyrotoxic crisis or storm; Z88.8 Allergy status to other drugs, medicaments and biological substances; Z79.899 Other long term (current) drug therapy; Z79.02 Long term (current) use of antithrombotics/antiplatelets
CPT/HCPCS: 36415; 74177; 80053; 81003; 82150; 83605; 83690; 85025; 86140; 96361; 96374; 99284; J1170; J7030; Q9967

== ENCOUNTER 2022-11-23 00:42 | Emergency (ER) | payer MEDICARE, OTHER ==
[2022-11-23] MEDS ORDERED: Acetaminophen 500 MG Tab PO ONE (01:09)
[2022-11-23 01:16] LABS: BASOPHILS PERCENT AUTO 0.2 % (0.0-1.0); EOSINOPHILS PERCENT AUTO 0.5 % (1.0-3.0); HEMATOCRIT 39.8 % (40.0-54.0); HEMOGLOBIN 13.2 g/dL (14.0-18.0); LYMPHOCYTES PERCENT AUTO 4.3 % (20.5-50.1); MEAN CORPUSCULAR HEMOGLOBIN 28.4 pg (27.0-34.0); MEAN CORPUSCULAR HGB CONC 33.2 g/dL (33.0-35.0); MEAN CORPUSCULAR VOLUME 85.8 fL (80-100); MONOCYTES PERCENT AUTO 4.6 % (2-8); NEUTROPHILS PERCENT AUTO 90.4 % (42.2-75.2); PLATELET COUNT,PLT 201 10^3/uL (150-450); RED BLOOD CELL COUNT 4.64 10^6/uL (4.6-6.2); WHITE BLOOD CELL COUNT,WBC 8.7 10^3/uL (5.0-10.0)
[2022-11-23 01:35] LABS: A/G RATIO 1.1; ALANINE AMINOTRANSFERASE,ALT 25 U/L (16-63); ALBUMIN 3.5 g/dL (3.4-5.0); ALKALINE PHOSPHATASE 59 U/L (46-116); ANION GAP 12.1 mEq/L (7-13); ASPARTATE AMNIOTRANSFERASE,AST 13 U/L (15-37); BILIRUBIN TOTAL 0.3 mg/dL (0.2-1.0); BLOOD UREA NITROGEN,BUN 27 mg/dL (7-18); BUN/CREATININE RATIO 23.3 (No establ ref range); C-REACTIVE PROTEIN 2.42 ng/dL (<=0.30); CALCIUM 8.4 mg/dL (8.5-10.1); CARBON DIOXIDE,CO2 31 mmol/L (21-32); CHLORIDE,CL 102 mmol/L (98-107); CREATININE 1.16 mg/dL (0.70-1.30); GLUCOSE RANDOM 156 mg/dL (70-99); POTASSIUM,K 4.1 mmol/L (3.5-5.1); PROTEIN TOTAL,TP 6.8 g/dL (6.4-8.2); SODIUM,NA 141 mmol/L (136-145)
[2022-11-23 01:37] LABS: ESTIMATED GFR 64 mL/min (>=60)
[2022-11-23 01:38] LABS: LACTIC ACID 1.3 mmol/L (0.4-2.0)
[2022-11-23] MEDS ORDERED: Ondansetron 4 MG/2 ML SDV IVPUSH ONE (01:40)
[2022-11-23 01:41] LABS: CORONAVIRUS COVID-19 NAA NEGATIVE (NEGATIVE); INFLUENZA A NAA NEGATIVE (NEGATIVE); INFLUENZA B NAA NEGATIVE (NEGATIVE); RESPIRATORY SYNCYTIAL VIR NAA NEGATIVE (NEGATIVE)
[2022-11-23] MEDS ORDERED: Sodium Chloride 0.9% 500 ML IV ONE (01:41)
[2022-11-23] MEDS ORDERED: Take Home: Ondansetron 4 MG Tab.DIS, 5 Tab Pack PO ONE (01:54)
[2022-11-23 03:00] VITALS: BP 145/98; PULSE 78
== END 2022-11-23 02:55 | disposition home or self-care (01) ==
LOC: DL.ED 00:42
DX: K52.9 Noninfective gastroenteritis and colitis, unspecified (principal); E78.00 Pure hypercholesterolemia, unspecified; I10 Essential (primary) hypertension; K21.9 Gastro-esophageal reflux disease without esophagitis; Z20.822 Contact with and (suspected) exposure to COVID-19; Z87.891 Personal history of nicotine dependence; Z79.899 Other long term (current) drug therapy; Z88.8 Allergy status to other drugs, medicaments and biological substances
CPT/HCPCS: 0241U; 36415; 80053; 83605; 85025; 86140; 96374; 99284; A9270; J2405; J7040; Q0162

== ENCOUNTER 2024-08-20 10:16 | Inpatient (IN) | payer MEDICARE, OTHER ==
[2024-08-20] MEDS ORDERED: Ondansetron 4 MG Tab.DIS PO PRN (16:29)
[2024-08-20] MEDS ORDERED: guaiFENesin/Dextromethorphan 100-10 MG/5 ML Soln 5 ML Cup PO PRN (16:29)
[2024-08-20] MEDS ORDERED: CALCIUM CARBONATE PO PRN (16:29)
[2024-08-20] MEDS ORDERED: FAMOTIDINE PO PRN (16:29)
[2024-08-20] MEDS ORDERED: Triamcinolone Acetonide 0.1% Crm 15 GM Tube TOP PRN (16:29)
[2024-08-20] MEDS ORDERED: MAGNESIUM HYDROXIDE PO PRN (16:29)
[2024-08-20] MEDS ORDERED: [UNRECOGNIZED DRUG - OTHER] PO PRN (16:29)
[2024-08-20] MEDS: Sennosides/Docusate Sodium 50-8.6 MG Tab PO SCH (21:08)
[2024-08-20] MEDS: Psyllium Husk Powder (4 in 1) 3.4 GM Packet PO SCH (21:12)
[2024-08-20] MEDS: Heparin Sodium 5,000 Units/ML Vial SUBCUT SCH (21:12)
[2024-08-21] MEDS ORDERED: Sodium Chloride 0.9% 10 ML Syringe FLUSH PRN (01:38)
[2024-08-21 06:14] LABS: BASOPHILS PERCENT AUTO 0.4 % (0.0-1.0); EOSINOPHILS PERCENT AUTO 2.4 % (1.0-3.0); LYMPHOCYTES PERCENT AUTO 31.0 % (20.5-50.1); MONOCYTES PERCENT AUTO 8.3 % (2-8); NEUTROPHILS PERCENT AUTO 57.9 % (42.2-75.2); PLATELET COUNT,PLT 195 10^3/uL (150-450); RED BLOOD CELL COUNT 4.01 10^6/uL (4.6-6.2); WHITE BLOOD CELL COUNT,WBC 7.1 10^3/uL (5.0-10.0)
[2024-08-21 06:38] LABS: BLOOD UREA NITROGEN,BUN 28.0 mg/dL (7-18); CARBON DIOXIDE,CO2 30.0 mmol/L (21-32); CHLORIDE,CL 102.0 mmol/L (98-107); CREATININE 1.22 mg/dL (0.70-1.30); EST CRCL DRUG DOSING (CG) 48.29 mL/min; GLUCOSE RANDOM 140.0 mg/dL (70-99); POTASSIUM,K 3.9 mmol/L (3.5-5.1); SODIUM,NA 137.0 mmol/L (136-145)
[2024-08-21 07:05] LABS: ESTIMATED GFR 60.0 mL/min (>=60)
[2024-08-21] MEDS: Sodium Chloride 0.9% 10 ML Syringe FLUSH SCH (08:58)
[2024-08-21] MEDS: MIRABEGRON 50 MG PO SCH (16:59)
[2024-08-22 06:32] LABS: BASOPHILS PERCENT AUTO 0.4 % (0.0-1.0); EOSINOPHILS PERCENT AUTO 2.1 % (1.0-3.0); LYMPHOCYTES PERCENT AUTO 26.2 % (20.5-50.1); MONOCYTES PERCENT AUTO 8.9 % (2-8); NEUTROPHILS PERCENT AUTO 62.4 % (42.2-75.2); PLATELET COUNT,PLT 182 10^3/uL (150-450); RED BLOOD CELL COUNT 4.14 10^6/uL (4.6-6.2); WHITE BLOOD CELL COUNT,WBC 7.3 10^3/uL (5.0-10.0)
[2024-08-22 06:47] LABS: BLOOD UREA NITROGEN,BUN 23.0 mg/dL (7-18); CARBON DIOXIDE,CO2 30.0 mmol/L (21-32); CHLORIDE,CL 102.0 mmol/L (98-107); CREATININE 1.17 mg/dL (0.70-1.30); EST CRCL DRUG DOSING (CG) 50.36 mL/min; GLUCOSE RANDOM 140.0 mg/dL (70-99); POTASSIUM,K 4.5 mmol/L (3.5-5.1); SODIUM,NA 138.0 mmol/L (136-145)
[2024-08-22 06:50] LABS: ESTIMATED GFR 63.0 mL/min (>=60)
[2024-08-24 08:10] LABS: BASOPHILS PERCENT AUTO 0.5 % (0.0-1.0); EOSINOPHILS PERCENT AUTO 3.2 % (1.0-3.0); LYMPHOCYTES PERCENT AUTO 33.7 % (20.5-50.1); MONOCYTES PERCENT AUTO 9.1 % (2-8); NEUTROPHILS PERCENT AUTO 53.5 % (42.2-75.2); PLATELET COUNT,PLT 191 10^3/uL (150-450); RED BLOOD CELL COUNT 3.83 10^6/uL (4.6-6.2); WHITE BLOOD CELL COUNT,WBC 5.7 10^3/uL (5.0-10.0)
[2024-08-24 08:30] LABS: ALANINE AMINOTRANSFERASE,ALT 24.0 U/L (16-63); ASPARTATE AMNIOTRANSFERASE,AST 19.0 U/L (15-37); BILIRUBIN TOTAL 0.3 mg/dL (0.2-1.0); BLOOD UREA NITROGEN,BUN 19.0 mg/dL (7-18); CARBON DIOXIDE,CO2 33.0 mmol/L (21-32); CHLORIDE,CL 104.0 mmol/L (98-107); CREATININE 1.08 mg/dL (0.70-1.30); EST CRCL DRUG DOSING (CG) 54.55 mL/min; GLUCOSE RANDOM 124.0 mg/dL (70-99); POTASSIUM,K 4.5 mmol/L (3.5-5.1); PROTEIN TOTAL,TP 6.4 g/dL (6.4-8.2); SODIUM,NA 141.0 mmol/L (136-145)
[2024-08-24 08:32] LABS: A/G RATIO 0.83; ESTIMATED GFR 69.0 mL/min (>=60)
[2024-08-24 15:40] LABS: T4 FREE 0.98 ng/dL (0.76-1.46); TSH ULTRASENSITIVE 3.07 uIU/mL (0.36-3.74)
[2024-08-25 05:55] LABS: BASOPHILS PERCENT AUTO 0.3 % (0.0-1.0); EOSINOPHILS PERCENT AUTO 2.3 % (1.0-3.0); LYMPHOCYTES PERCENT AUTO 29.7 % (20.5-50.1); MONOCYTES PERCENT AUTO 8.9 % (2-8); NEUTROPHILS PERCENT AUTO 58.8 % (42.2-75.2); PLATELET COUNT,PLT 206 10^3/uL (150-450); RED BLOOD CELL COUNT 3.85 10^6/uL (4.6-6.2); WHITE BLOOD CELL COUNT,WBC 6.4 10^3/uL (5.0-10.0)
[2024-08-25 06:20] LABS: ALANINE AMINOTRANSFERASE,ALT 30.0 U/L (16-63); ASPARTATE AMNIOTRANSFERASE,AST 25.0 U/L (15-37); BILIRUBIN TOTAL 0.2 mg/dL (0.2-1.0); BLOOD UREA NITROGEN,BUN 22.0 mg/dL (7-18); CARBON DIOXIDE,CO2 31.0 mmol/L (21-32); CHLORIDE,CL 102.0 mmol/L (98-107); CREATININE 1.11 mg/dL (0.70-1.30); EST CRCL DRUG DOSING (CG) 53.08 mL/min; GLUCOSE RANDOM 146.0 mg/dL (70-99); POTASSIUM,K 4.4 mmol/L (3.5-5.1); PROTEIN TOTAL,TP 6.7 g/dL (6.4-8.2); SODIUM,NA 139.0 mmol/L (136-145)
[2024-08-25 06:23] LABS: A/G RATIO 0.81; ESTIMATED GFR 67.0 mL/min (>=60)
[2024-08-25 16:16] LABS: APPEARANCE,URINE CLEAR (CLEAR); GLUCOSE,URINE NEGATIVE (NEGATIVE); OCCULT BLOOD,URINE NEGATIVE (NEGATIVE)
[2024-08-25 16:40] LABS: EPITHELIAL CELLS,URINE RARE /HPF (NOT SEEN)
[2024-08-26 06:06] LABS: BASOPHILS PERCENT AUTO 0.3 % (0.0-1.0); EOSINOPHILS PERCENT AUTO 3.0 % (1.0-3.0); LYMPHOCYTES PERCENT AUTO 34.1 % (20.5-50.1); MONOCYTES PERCENT AUTO 8.6 % (2-8); NEUTROPHILS PERCENT AUTO 54.0 % (42.2-75.2); PLATELET COUNT,PLT 209 10^3/uL (150-450); RED BLOOD CELL COUNT 3.75 10^6/uL (4.6-6.2); WHITE BLOOD CELL COUNT,WBC 5.9 10^3/uL (5.0-10.0)
[2024-08-26 06:28] LABS: ALANINE AMINOTRANSFERASE,ALT 49.0 U/L (16-63); ASPARTATE AMNIOTRANSFERASE,AST 42.0 U/L (15-37); BILIRUBIN TOTAL 0.2 mg/dL (0.2-1.0); BLOOD UREA NITROGEN,BUN 24.0 mg/dL (7-18); CARBON DIOXIDE,CO2 30.0 mmol/L (21-32); CHLORIDE,CL 102.0 mmol/L (98-107); CREATININE 1.13 mg/dL (0.70-1.30); EST CRCL DRUG DOSING (CG) 52.14 mL/min; GLUCOSE RANDOM 132.0 mg/dL (70-99); POTASSIUM,K 4.2 mmol/L (3.5-5.1); PROTEIN TOTAL,TP 6.5 g/dL (6.4-8.2); SODIUM,NA 138.0 mmol/L (136-145)
[2024-08-26 06:29] LABS: A/G RATIO 0.86; ESTIMATED GFR 66.0 mL/min (>=60)
[2024-08-26 10:53] VITALS: BP 108/85; PULSE 82
== END 2024-08-26 10:45 | DRG 563 ==
LOC: DL.ED 10:16 → DL.MS 14:00
PROVIDERS: ADMIT Internal Medicine; ATTEND Student in an Organized Health Care Education/Training Program
DX: S82.832A Other fracture of upper and lower end of left fibula, initial encounter for closed fracture (principal); I69.354 Hemiplegia and hemiparesis following cerebral infarction affecting left non-dominant side; D69.3 Immune thrombocytopenic purpura; Z66 Do not resuscitate; E78.5 Hyperlipidemia, unspecified; M10.9 Gout, unspecified; N40.0 Benign prostatic hyperplasia without lower urinary tract symptoms; H91.90 Unspecified hearing loss, unspecified ear; H54.7 Unspecified visual loss; W18.30XA Fall on same level, unspecified, initial encounter; E78.00 Pure hypercholesterolemia, unspecified; I10 Essential (primary) hypertension; G47.30 Sleep apnea, unspecified; K59.09 Other constipation; K21.9 Gastro-esophageal reflux disease without esophagitis; F41.9 Anxiety disorder, unspecified; F32.A Depression, unspecified; J42 Unspecified chronic bronchitis; K59.00 Constipation, unspecified; K64.9 Unspecified hemorrhoids; D64.9 Anemia, unspecified; E11.9 Type 2 diabetes mellitus without complications; N31.9 Neuromuscular dysfunction of bladder, unspecified; M19.90 Unspecified osteoarthritis, unspecified site; R07.9 Chest pain, unspecified; E88.09 Other disorders of plasma-protein metabolism, not elsewhere classified; W19.XXXA Unspecified fall, initial encounter; R39.198 Other difficulties with micturition; Z88.8 Allergy status to other drugs, medicaments and biological substances; Z79.02 Long term (current) use of antithrombotics/antiplatelets; Z79.82 Long term (current) use of aspirin; Z79.899 Other long term (current) drug therapy; Z79.84 Long term (current) use of oral hypoglycemic drugs
CPT/HCPCS: 36415; 51702; 51798; 71045; 73610-LT; 80048; 80053; 81001; 83735; 84439; 84443; 84484; 85025; 85049; 87086; 93005; 93010; 97161-GP; 97165-GO; 97530-GO; 97530-GP; 99222; 99232; 99233; 99238; 99284; 99285; A9270-GY; J0696; J1644; J2270

== ENCOUNTER 2024-11-25 14:42 | Emergency (ER) | payer MEDICARE, OTHER ==
[2024-11-25 15:11] VITALS: BP 140/88; PULSE 82
[2024-11-25 15:34] LABS: BASOPHILS PERCENT AUTO 0.6 % (0.0-1.0); EOSINOPHILS PERCENT AUTO 3.4 % (1.0-3.0); LYMPHOCYTES PERCENT AUTO 28.4 % (20.5-50.1); MONOCYTES PERCENT AUTO 8.3 % (2-8); NEUTROPHILS PERCENT AUTO 59.3 % (42.2-75.2); PLATELET COUNT,PLT 230 10^3/uL (150-450); RED BLOOD CELL COUNT 4.26 10^6/uL (4.6-6.2); WHITE BLOOD CELL COUNT,WBC 7.0 10^3/uL (5.0-10.0)
== END 2024-11-25 15:55 | disposition home or self-care (01) ==
LOC: DL.ED 14:42
DX: K14.3 Hypertrophy of tongue papillae (principal); R05.1 Acute cough; E78.00 Pure hypercholesterolemia, unspecified; I10 Essential (primary) hypertension; K21.9 Gastro-esophageal reflux disease without esophagitis; Z88.8 Allergy status to other drugs, medicaments and biological substances; Z79.51 Long term (current) use of inhaled steroids; Z79.82 Long term (current) use of aspirin; Z79.84 Long term (current) use of oral hypoglycemic drugs; Z79.899 Other long term (current) drug therapy
CPT/HCPCS: 36415; 85025; 99283

== ENCOUNTER 2024-12-31 06:34 | Emergency (ER) | payer MEDICARE, OTHER ==
[2024-12-31 07:01] LABS: BASOPHILS PERCENT AUTO 0.3 % (0.0-1.0); EOSINOPHILS PERCENT AUTO 5.3 % (1.0-3.0); LYMPHOCYTES PERCENT AUTO 20.6 % (20.5-50.1); MONOCYTES PERCENT AUTO 9.1 % (2-8); NEUTROPHILS PERCENT AUTO 64.7 % (42.2-75.2); PLATELET COUNT,PLT 196 10^3/uL (150-450); RED BLOOD CELL COUNT 4.35 10^6/uL (4.6-6.2); WHITE BLOOD CELL COUNT,WBC 7.7 10^3/uL (5.0-10.0)
[2024-12-31 07:23] LABS: A/G RATIO 1.1; ALANINE AMINOTRANSFERASE,ALT 62 U/L (16-63); ASPARTATE AMNIOTRANSFERASE,AST 43 U/L (15-37); BILIRUBIN TOTAL 0.2 mg/dL (0.2-1.0); BLOOD UREA NITROGEN,BUN 32 mg/dL (7-18); CARBON DIOXIDE,CO2 31 mmol/L (21-32); CHLORIDE,CL 102 mmol/L (98-107); CREATININE 1.19 mg/dL (0.70-1.30); ESTIMATED GFR 61 mL/min (>=60); GLUCOSE RANDOM 170 mg/dL (70-99); POTASSIUM,K 4.4 mmol/L (3.5-5.1); PROTEIN TOTAL,TP 7.4 g/dL (6.4-8.2); SODIUM,NA 142 mmol/L (136-145)
[2024-12-31 08:47] LABS: APPEARANCE,URINE CLEAR (CLEAR); GLUCOSE,URINE NEGATIVE (NEGATIVE); OCCULT BLOOD,URINE NEGATIVE (NEGATIVE)
[2024-12-31 09:01] LABS: SQUAMOUS EPITHELIAL CELLS,UR RARE /HPF (NOT SEEN)
== END 2024-12-31 09:55 | disposition home or self-care (01) ==
LOC: DL.ED 06:34
DX: S00.93XA Contusion of unspecified part of head, initial encounter (principal); M25.512 Pain in left shoulder; I10 Essential (primary) hypertension; E78.00 Pure hypercholesterolemia, unspecified; K21.9 Gastro-esophageal reflux disease without esophagitis; Z86.73 Personal history of transient ischemic attack (TIA), and cerebral infarction without residual deficits; Z79.82 Long term (current) use of aspirin; Z79.899 Other long term (current) drug therapy; Z88.8 Allergy status to other drugs, medicaments and biological substances; Z79.02 Long term (current) use of antithrombotics/antiplatelets; W01.198A Fall on same level from slipping, tripping and stumbling with subsequent striking against other object, initial encounter
CPT/HCPCS: 36415; 70450; 71045; 73030-LT; 73600-LT; 80053; 81001; 84484; 85025; 93005; 99284

== ENCOUNTER 2025-01-01 20:52 | Emergency (ER) | payer MEDICARE, OTHER ==
[2025-01-01 21:23] LABS: BASOPHILS PERCENT AUTO 0.6 % (0.0-1.0); EOSINOPHILS PERCENT AUTO 4.7 % (1.0-3.0); LYMPHOCYTES PERCENT AUTO 15.5 % (20.5-50.1); MONOCYTES PERCENT AUTO 11.1 % (2-8); NEUTROPHILS PERCENT AUTO 68.1 % (42.2-75.2); PLATELET COUNT,PLT 199 10^3/uL (150-450); RED BLOOD CELL COUNT 4.23 10^6/uL (4.6-6.2); WHITE BLOOD CELL COUNT,WBC 9.7 10^3/uL (5.0-10.0)
[2025-01-01 21:56] LABS: A/G RATIO 0.9; ALANINE AMINOTRANSFERASE,ALT 85 U/L (16-63); ASPARTATE AMNIOTRANSFERASE,AST 51 U/L (15-37); BILIRUBIN TOTAL 0.3 mg/dL (0.2-1.0); BLOOD UREA NITROGEN,BUN 26 mg/dL (7-18); CARBON DIOXIDE,CO2 26 mmol/L (21-32); CHLORIDE,CL 98 mmol/L (98-107); CREATININE 1.30 mg/dL (0.70-1.30); GLUCOSE RANDOM 142 mg/dL (70-99); POTASSIUM,K 4.5 mmol/L (3.5-5.1); PROTEIN TOTAL,TP 7.3 g/dL (6.4-8.2); SODIUM,NA 130 mmol/L (136-145)
[2025-01-01 21:57] LABS: ESTIMATED GFR 55 mL/min (>=60)
[2025-01-01 22:53] LABS: APPEARANCE,URINE CLEAR (CLEAR); GLUCOSE,URINE NEGATIVE (NEGATIVE); OCCULT BLOOD,URINE MODERATE (NEGATIVE)
[2025-01-01] MEDS: Phenazopyridine 95 MG Tab PO ONE (23:33)
[2025-01-01] MEDS: Lidocaine 2% Jelly 10 ML Urojet MUCMEM ONE (23:33)
[2025-01-01 23:38] LABS: EPITHELIAL CELLS,URINE RARE /HPF (NOT SEEN)
[2025-01-02 00:15] VITALS: BP 161/73; PULSE 81
== END 2025-01-02 00:11 | disposition home or self-care (01) ==
LOC: DL.ED 20:52
DX: R07.89 Other chest pain (principal); R33.9 Retention of urine, unspecified; I10 Essential (primary) hypertension; E78.00 Pure hypercholesterolemia, unspecified; K21.9 Gastro-esophageal reflux disease without esophagitis; M19.90 Unspecified osteoarthritis, unspecified site; E03.9 Hypothyroidism, unspecified; Z90.89 Acquired absence of other organs; Z79.01 Long term (current) use of anticoagulants; Z79.82 Long term (current) use of aspirin; Z88.8 Allergy status to other drugs, medicaments and biological substances; Z79.899 Other long term (current) drug therapy; Z79.84 Long term (current) use of oral hypoglycemic drugs; Z79.891 Long term (current) use of opiate analgesic
CPT/HCPCS: 36415; 51702; 70450; 71250; 73610; 80053; 81001; 82550; 84484; 85025; 93005; 99285; A9270; 93010; 99284